=== PATIENT | male | born 1980 | race Caucasian/White ===

== ENCOUNTER 2022-10-27 19:25 | Emergency (ER) | payer OTHER, SELFPAY ==
[2022-10-27 19:27] VITALS: BP 149/77; PULSE 88; RESP 16; TEMP 37.1; O2SAT 99; BMI 23.1
--- NOTE | 2022-10-27 19:37 | RAD_ITS ---
INDICATION: TRAUMA EXAMINATION/TECHNIQUE: X-RAY - LEFT XR Hand Min 3 Views 3 VIEWS COMPARISON: None. FINDINGS: SOFT TISSUES: No soft tissue swelling or gas. No radiopaque foreign body. BONES/JOINTS: No acute fracture or subluxation.. Normal alignment. Preservation of the joint space.. No sclerotic or destructive changes observed. RAD/Hand Min 3 Views IMPRESSION: Negative. Electronically Signed: Kam Snider MD at 19:53 EST ,
--- NOTE | 2022-10-27 19:42 | ED.RN ---
Pt states he works for [employer] out of [place]. But workers comp is to be billed to [employer].
--- NOTE | 2022-10-27 22:02 | EX.ED.UPPERE ---
HPI History of Present Illness Chief Complaint: Upper Extremity Injury Narrative Narrative: Patient presents with a left thumb injury. He sustained a crush injury just prior to arrival. He has quite a bit of thumb pain. No other injury. PFSH PFSH Allergy/AdvReac Type Severity Reaction Status Date / Time Sulfa (Sulfonamide Allergy Rash Verified 10/27/22 21:35 Antibiotics) [sulfa drugs] Social History Smoking Status: Current every day smoker tobacco type: cigarettes ROS ROS ED ROS Narrative Past medical history: none Medications: Reviewed Social history: Noncontributory Review of systems: Musculoskeletal: Left thumb shows pain over the distal phalanx, he has a very small subungual hematoma, very small abrasion over the dorsum of the finger just proximal to the nailbed. No actual laceration. Skin: As above normal flexion and extension and tendon function. Neurological: No weakness or paresthesias Hematologic: No easy bleeding or easy bruising EXAM Physical Exam Const Vital Signs: 10/27/22 19:27 Temperature 98.7 F Temperature Source Temporal Pulse Rate 88 Respiratory Rate 16 Blood Pressure 149/77 H Blood Pressure Mean 101 Pulse Ox 99 Oxygen Delivery Method Room Air MDM MDM MDM Narrative Medical decision making narrative: Left thumb x-ray read by me shows a distal phalanx fracture with intra-articular component. Patient is found to have a fracture, I do not believe the fracture is open. There is a small subungual hematoma I thought about trephination however we will bypass that at this time since it small. Patient will be splinted and followed up with orthopedics. No further x-rays are needed. Tetanus will be updated. Radiography Diagnostic Testing: Clinical Impression(s) from Imaging Studies Hand X-Ray 10/27/22 19:37 IMPRESSION: Negative. Electronically Signed: Kam Snider MD at 19:53 EST , ADDENDUM: 10/27/222039 IMPRESSION: There is a comminuted fracture of the distal 1st digit. There is articular extension of the fracture. Soft tissue swelling of the digit. Electronically Signed: Kam Snider MD at 20:33 EST , Discharge Plan Triage Chief Complaint: Upper Extremity Injury ED Provider: Knig Galvez Dx/Rx/DC Orders Clinical Impression: Crush injury to finger, Fracture of thumb, Subungual hematoma Instructions: ED Fracture, Thumb Primary Care Provider: Care Physician,No Primary Referrals: Melquiades Bledsoe DO [Med Staff - Active Staff] - 3-5 Days Care Physician,No Primary [Primary Care Provider] - Disposition Disposition: Home, Self Care
[2022-10-27] MEDS: Diphth,Pertuss(Acell),Tet Vac 0.5 ML Vial IM (22:17)
--- NOTE | 2022-10-27 22:45 | NURSING ---
spoke with pt about need to follow up tomorrow morning at the [facility] for drug test. This nurse wrote down the address and reviewed how to find the clinic. pt stated understanding. 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
== END 2022-10-27 22:47 | disposition home or self-care (01) ==
PROVIDERS: Emergency Provider Emergency Medicine; Visit Provider Emergency Medicine
DX: S67.02XA Crushing injury of left thumb, initial encounter (principal); S62.522A Displaced fracture of distal phalanx of left thumb, initial encounter for closed fracture; S60.012A Contusion of left thumb without damage to nail, initial encounter; X58.XXXA Exposure to other specified factors, initial encounter; F17.210 Nicotine dependence, cigarettes, uncomplicated
CPT/HCPCS: 73130; 99283